=== PATIENT | male | born 1960 | race American Indian/Alaskan Native ===

== ENCOUNTER 2017-06-17 11:10 | Emergency (ER) | payer MEDICAID ==
--- NOTE | 2017-06-17 12:53 | XRay Report ---
LEFT HAND, 3 views: History: Pain The bony architecture is intact. Bony alignment is normal. No soft tissue abnormalities are seen. The joint spaces appear preserved. IMPRESSION: Normal left hand.
--- NOTE | 2017-06-17 12:53 | XRay Report ---
LEFT WRIST, 4 views: HISTORY: Pain. Routine views demonstrate the carpal bones to be well mineralized with well preserved bony mineralization and interosseous joint spaces. The carpal and adjacent articular bones have normal contours. The surrounding soft tissues are unremarkable. IMPRESSION: Normal study.
[2017-06-17] MEDS ORDERED: MOTRIN PO ONE (14:49)
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
[2017-06-17 15:17] VITALS: BP 126/92
== END 2017-06-17 15:19 | disposition home or self-care (01) ==
LOC: ED 11:10
DX: S66.912A Strain of unspecified muscle, fascia and tendon at wrist and hand level, left hand, initial encounter (principal); I10 Essential (primary) hypertension; J45.909 Unspecified asthma, uncomplicated; W18.30XA Fall on same level, unspecified, initial encounter; Y93.9 Activity, unspecified; Y92.9 Unspecified place or not applicable; Y99.9 Unspecified external cause status

== ENCOUNTER 2019-07-05 19:49 | Emergency (ER) | payer MEDICAID ==
[2019-07-06] MEDS ORDERED: ZIPRASIDONE MESYLATE 20 MG VIAL IM ONE ×2 (00:01→03:08)
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
--- NOTE | 2019-07-06 01:43 | Cat Scan Report ---
CT head/brain wo con INDICATION: ams. TECHNIQUE: Routine CT head without contrast. All CT scans at this location are performed using CT dos e reduction for ALARA by means of automated exposure control. COMPARISON: None. FINDINGS: BRAIN / INTRACRANIAL CONTENTS: Prior bifrontal craniotomy. No acute hemorrhage, mass effect, midline shift, or hydrocephalus. No appreciable acute large territorial or lacunar infarct. No chronic infar ct or focal atrophy. Normal brain volume and ventricular/sulcal size for age. ORBITS: No significant abnormality of visualized orbits. SINUSES / MASTOIDS: Mucous retention cyst in the right maxillary sinus. ADDITIONAL FINDINGS: None. IMPRESSION: 1. No acute intracranial abnormality identified on noncontrast CT of the brain. Signer Name: Janis Serna MD Signed: 07/06/2019 1:39 AM Workstation Name: [id number]
[2019-07-06 05:02] VITALS: BP 101/83
== END 2019-07-06 05:15 | disposition home or self-care (01) ==
LOC: ED 19:49
DX: F10.129 Alcohol abuse with intoxication, unspecified (principal); M19.90 Unspecified osteoarthritis, unspecified site; J45.909 Unspecified asthma, uncomplicated; G89.29 Other chronic pain; M54.9 Dorsalgia, unspecified
CPT/HCPCS: 36415; 70450; 96372; 99284; J3486; 80320; G0480

== ENCOUNTER 2019-07-28 17:51 | Emergency (ER) | payer MEDICAID ==
[2019-07-28 18:49] VITALS: BP 136/89
--- NOTE | 2019-07-28 18:53 | Emergency Department Report ---
Chief Complaint: Extremity Problem,Nontraumatic Stated Complaint: LT HAND PAIN - HPI History of Present Illness: 58yo BM states that he has L hand swelling and pain. He states that he recently had the same problem and his diagnosis was gout and arthritis. He states that he recent ran out of medication for gout. MSE screening note: Focused history and physical exam performed. Due to findings the following was ordered: ED Disposition for MSE Condition: Stable
--- NOTE | 2019-07-28 19:25 | XRay Report ---
EXAMINATION: Left hand, 07/28/2019 CLINICAL INFORMATION: Left hand pain and swelling. No history of trauma. COMPARISON: Left hand radiograph, 06/17/2017 FINDINGS: There is no evidence of acute bony fracture or significant soft tissue swelling of the left hand. No significant bony degenerative changes are visualized. Signer Name: Chelo Shrestha MD Signed: 07/28/2019 7:21 PM Workstation Name: [id number]
--- NOTE | 2019-07-28 20:55 | Emergency Department Report ---
Upper Extremity - HPI Chief Complaint: Extremity Problem,Nontraumatic Stated Complaint: LT HAND PAIN Time Seen by Provider: 07/28/19 20:36 Upper Extremity: Left Hand (pain and swelling to left hand and fingers), Left Thumb, Left Index Finger, Left Middle Finger, Left Ring Finger, Left Little Finger Occurred When: 3 Days Mechanism: Other (13 has a history of gout and had this in the past.) Severity: severe (10/10) Symptoms: Yes Pain with Movement (left hand and fingers to left hand), Yes Weakness (hand, left), Yes Swelling (left hand and fingers), No Limited Range of Movement (patient in moving fingers to left hand reporting pain), No Numbness, No Bruising/Ecchymosis, No Laceration or Abrasion Other History: Patient here reports left hand swelling and pain that been going on for a few days. He said he has had similar incident and had gone to [place] where they gave him some pills. He said he has a history of gout and has not been eating red meat. Denies any history of report for previous fracture to left hand. Denies any fever or chills. No medication taken prior to coming to the emergency room. ED Review of Systems ROS: Stated complaint: LT HAND PAIN Other details as noted in HPI Constitutional: denies: chills, fever Respiratory: denies: cough, shortness of breath, wheezing Cardiovascular: denies: chest pain, palpitations, edema, syncope Gastrointestinal: denies: abdominal pain, nausea, vomiting Musculoskeletal: joint swelling, arthralgia. denies: back pain, myalgia Skin: denies: rash Neurological: denies: headache, numbness, paresthesias ED Past Medical Hx - Past Medical History Previous Medical History?: Yes Hx Hypertension: Yes Hx Arthritis: Yes Hx Asthma: Yes Additional medical history: chronic back pain - Surgical History Past Surgical History?: Yes Additional Surgical History: hernia, subdural hematoma - Family History Family history: hypertension - Social History Smoking Status: Never Smoker Substance Use Type: None - Medications Home Medications: Home Medications Medication Instructions Recorded Confirmed Last Taken Type Ibuprofen [Motrin 600 MG tab] 600 mg PO Q8H PRN #30 tablet 06/17/17 Unknown Rx Clindamycin [Clindamycin CAP] 300 mg PO Q8H 10 Days #30 cap 07/28/19 Unknown Rx HYDROcodone/APAP 7.5-325 [Bode 1 each PO Q6HR PRN #12 tablet 07/28/19 Unknown Rx 7.5/325] Ibuprofen [Motrin] 800 mg PO Q8HR PRN #15 tablet 07/28/19 Unknown Rx Upper Extremity Exam - Exam General: Vital signs noted. No distress. Alert and acting appropriately. This is a 58-year-old male well-nourished well-developed in no acute distress. Head and Torso: No HEENT Abnormality, No Neck Tenderness, No Chest/Lungs Abnormality, No Abdominal Tenderness, No Back Tenderness Shoulder Exam: Yes Normal Range of Motion in Shoulder, No Shoulder Tenderness, N o Clavicle Tenderness, No Shoulder Deformity, No AC Joint Tenderness Arm Exam: No Arm/Humerus Tenderness, No Arm Deformity Elbow: Yes Normal Range of Motion in Elbow, No Elbow Tenderness, No Elbow Deformity Forearm: No Forearm Tenderness, No Forearm Deformity, No Pain with Pronation, No Pain with Supination Wrist: Yes Normal ROM in Wrist, No Wrist Tenderness, No Wrist Deformity, No Snuffbox Tenderness, No Pain with Axial Thumb Compression Hand: Yes Hand Tenderness (dorsal aspect and palmar aspect), Yes Digit Tenderness (all fingers of left hand), Yes Tendon Dysfunction (patient with difficulty in moving fingers.), No Hand Deformity, No Normal ROM in Digit(s) (limited range of motion to fingers of left hand), No Digit(s) Deformity CMS Exam: Yes Normal Distal Pulses (radial ulnar pulses are 2+), Yes Normal Capillary Refill (less than 2 seconds), Yes Normal Distal Sensation (normal sensation), No Broken Skin (no redness) ED Course Vital Signs 07/28/19 17:54 Temperature 98.4 F Pulse Rate 105 H Respiratory 16 Rate Blood Pressure 136/89 O2 Sat by Pulse 94 Oximetry Vital Signs 07/28/19 07/28/19 07/28/19 17:54 21:41 22:38 Temperature 98.4 F Pulse Rate 105 H Respiratory 16 16 16 Rate Blood Pressure 136/89 O2 Sat by Pulse 94 Oximetry Vital Signs 07/28/19 07/28/19 07/28/19 17:54 21:41 22:38 Temperature 98.4 F Pulse Rate 105 H Respiratory 16 16 16 Rate Blood Pressure 136/89 O2 Sat by Pulse 94 Oximetry 07/28/19 23:06 Temperature Pulse Rate 88 Respiratory Rate Blood Pressure O2 Sat by Pulse Oximetry - Reevaluation(s) Reevaluation #1: 07/28/19 21:58 Patient's CBC and CMP stable uric acid is normal. X-ray of left hand normal findings. Dr. Froylan Morgan who is the ER attending physician patient and suspect tendosynovitis and I spoke with Dr. Sy who is the orthopedic doctor and explained x-ray and lab work with him and he decided that patient does not sound like he has an infection since his white count is normal and he does not have a fever and that he can be sent home in a volar splint with sling to keep arm elevated and also anti-inflammatory. Patient had received morphine 4 mg IV and Zofran IV. He also received 1 L of normal saline. Dr. Sy was orthopedic do ctor once patient to be discharged home with splint and sling and to follow-up. Reevaluation #2: 07/28/19 23:04 Patient was given clindamycin 900 mg IV after consulting with Dr. Galeano he will and told him what this the orthopedic doctor said regarding splinting and sling and sent patient home on pain medicine and anti-inflammatory. Patient with tendinitis that is stable. Vital signs stable he is afebrile and pain is controlled. Splint checked and he has good color, movement temperature and sensation to fingers of left hand. Please see procedure note for details on splinting - Orthopedic Splinting/Casting Injury #1 Side: left Upper Extremity Injury Location: hand Upper Extremity Immobilizer: sling/shoulder immobilize, volar spint ED Medical Decision Making - Lab Data Result diagrams: 07/28/19 21:00 07/28/19 21:00 Lab Results 07/28/19 07/28/19 Range/Units 21:00 21:00 WBC 7.8 (4.5-11.0) K/mm3 RBC 3.81 (3.65-5.03) M/mm3 Hgb 11.9 (11.8-15.2) gm/dl Hct 34.8 L (35.5-45.6) % MCV 91 (84-94) fl MCH 31 (28-32) pg MCHC 34 (32-34) % RDW 13.3 (13.2-15.2) % Plt Count 293 (140-440) K/mm3 Lymph % (Auto) 16.5 (13.4-35.0) % Harding % (Auto) 7.0 (0.0-7.3) % Eos % (Auto) 1.3 (0.0-4.3) % Baso % (Auto) 1.4 (0.0-1.8) % Lymph # 1.2 (1.2-5.4) K/mm3 Harding # 0.5 (0.0-0.8) K/mm3 Eos # 0.1 (0.0-0.4) K/mm3 Baso # 0.1 (0.0-0.1) K/mm3 Seg Neutrophils % 73.8 H (40.0-70.0) % Seg Neutrophils # 5.4 (1.8-7.7) K/mm3 Sodium 136 L (137-145) mmol/L Potassium 3.8 (3.6-5.0) mmol/L Chloride 100.0 (98-107) mmol/L Carbon Dioxide 23 (22-30) mmol/L Anion Gap 17 mmol/L BUN 11 (9-20) mg/dL Creatinine 1.1 (0.8-1.5) mg/dL Estimated GFR > 60 ml/min BUN/Creatinine Ratio 10 % Glucose 94 (75-100) mg/dL Uric Acid 6.7 (3.5-7.6) mg/dL Calcium 9.3 (8.4-10.2) mg/dL Total Bilirubin 0.40 (0.1-1.2) mg/dL AST 20 (5-40) units/L ALT 18 (7-56) units/L Alkaline Phosphatase 89 (35-129) units/L Total Protein 7.8 (6.3-8.2) g/dL Albumin 4.0 (3.9-5) g/dL Albumin/Globulin Ratio 1.1 % - Radiology Data Radiology results: report reviewed X-ray of left hand showed no fracture or dislocation and no significant soft tissue swelling. This is dictated by radiologist and report reviewed by myself. Findings [facility] [address] [place] [address] XRay Report Signed Patient: NATALIIA VICK MR#: [id number] : 1960 Acct:[id number] Age/Sex: 58 / M ADM Date: 07/28/19 Loc: ED Attending Dr: Ordering Physician: TJ BANUELOS PA-C Date of Service: 07/28/19 Procedure(s): XR hand 3+V LT Accession Number(s): [id number] cc: TJ BANUELOS PA-C Fluoro Time In Minutes: EXAMINATION: Left hand, 07/28/2019 CLINICAL INFORMATION: Left hand pain and swelling. No history of trauma. COMPARISON: Left hand radiograph, 06/17/2017 FINDINGS: There is no evidence of acute bony fracture or significant soft tissue swelling of the left hand. No significant bony degenerative changes are visualized. Signer Name: Chelo Shrestha MD Signed: 07/28/2019 7:21 PM Workstation Name: [id number] Transcribed By: EB Dictated By: Chelo Shrestha MD Electronically Authenticated By: Chelo Shrestha MD Signed Date/Time: 07/28/191920 DD/ 19 TD/TT: - Medical Decision Making This is a 58-year-old male presented emergency room reporting left hand and finger pain with difficulty moving his left hand and finger due to pain. He is had this 2 times in the past and was treated at [facility] . Patient has no fever and his heart rate is normal. Blood pressure stable. Uric acid is normal and CBC and CMP stable. Dr. Froylan Morgan who is the ER attending physician saw patient and evaluated patient and I was told to call Dr. Sy was orthopedic doctor and after given him information on labs, x-ray and vital signs over the phone he decided that patient have tendinitis and should be placed in splint and sling and keep is left upper extremity elevated. Patient will medicated with pain medication in emergency room and his pain is 2 out of 10 at present. He was given 1 L of IV fluid. Vital signs are stable he is afebrile at present he said he is feeling a lot better. I discussed this decision of and also with Dr. Froylan Morgan and patient was treated with additional antibiotics IV and sent home on clindamycin, anti-inflammatory and Bode. I discussed with him that he needs to follow-up with his primary care and also orthopedic doctor and Wednesday and if his condition worsen to return to the emergency room [facility] and he agrees - Differential Diagnosis tendon abnormality, FX, contusion, Gout Critical care attestation.: If time is entered above; I have spent that time in minutes in the direct care of this critically ill patient, excluding procedure time. ED Disposition Clinical Impression: Tendinitis of left hand, Arthralgia of left hand Disposition: - TO HOME OR SELFCARE Is pt being admited?: No Does the pt Need Aspirin: No Condition: Stable Instructions: Tendinitis (ED), Arthralgia (ED), Splint Care (ED) Additional Instructions: return to the emergency room [facility] if you develop fever, redness and increased swelling to left hand and her fingers, difficulty in moving left hand or finger or pain radiating proximally to wrist and forearm. Follow-up with orthopedic doctor in 2 days which is 07/31/2019 for management of tendinitis and reevaluation. See discharge instruction on splint care, tendinitis. Do not drive or operate heavy machinery while taking Bode as this medication causes drowsiness Continue to wear sling and splint anterior seen by orthopedic doctor and keep left upper extremity which is your left hand and forearm elevated above shoulder level at all times. Prescriptions: Clindamycin [Clindamycin CAP] 300 mg PO Q8H 10 Days #30 cap Ibuprofen [Motrin] 800 mg PO Q8HR PRN #15 tablet PRN Reason: inflamation HYDROcodone/APAP 7.5-325 [Bode 7.5/325] 1 each PO Q6HR PRN #12 tablet PRN Reason: Pain Referrals: FLAKITA SY MD [Staff Physician] - 07/31/19 PRIMARY CAREMD [Primary Care Provider] - 07/31/19 [facility] [Outside] - 07/31/19 Forms: Work/School Release Form(ED), Accompanied Note
[2019-07-28] MEDS ORDERED: SODIUM CHLORIDE 0.9% 1000 ML 1,000 ML IV ONE (20:56)
[2019-07-28] MEDS ORDERED: KETOROLAC 60 MG/2 ML INJ IVP ONE (20:56)
[2019-07-28] MEDS ORDERED: ONDANSETRON 4 MG/2 ML INJ IV ONE (20:56)
[2019-07-28] MEDS ORDERED: dexAMETHasone 4 MG/ML VIAL IV STA (20:56)
[2019-07-28] MEDS ORDERED: MORPHINE 4 MG/1 ML INJ IV ONE (20:57)
[2019-07-28 21:17] LABS: Hematocrit 34.8 % (35.5-45.6); Hemoglobin 11.9 gm/dl (11.8-15.2); Mean Corpuscular HGB Conc 34 % (32-34); Mean Corpuscular Volume 91 fl (84-94); Platelet Count 293 K/mm3 (140-440); Red Blood Count 3.81 M/mm3 (3.65-5.03); Red Cell Distribution Width 13.3 % (13.2-15.2)
[2019-07-28 21:26] LABS: Basophils # (Auto) 0.1 K/mm3 (0.0-0.1); Basophils % (Auto) 1.4 % (0.0-1.8); Eosinophils # (Auto) 0.1 K/mm3 (0.0-0.4); Eosinophils % (Auto) 1.3 % (0.0-4.3); Lymphocytes # (Auto) 1.2 K/mm3 (1.2-5.4); Lymphocytes % (Auto) 16.5 % (13.4-35.0); Monocytes # (Auto) 0.5 K/mm3 (0.0-0.8)
[2019-07-28 21:42] LABS: Alanine Aminotransferase 18 units/L (7-56); BUN/Creatinine Ratio 10; Blood Urea Nitrogen 11 mg/dL (9-20); Calcium 9.3 mg/dL (8.4-10.2); Hemolysis Index 8; Uric Acid 6.7 mg/dL (3.5-7.6)
[2019-07-28] MEDS ORDERED: oxyCODONE /ACETAMINOPHEN 5-325MG TAB PO ONE (21:57)
--- NOTE | 2019-07-28 21:58 | Emergency Department Report ---
ED Lower Extremity HPI - General Chief Complaint: Extremity Problem,Nontraumatic Stated Complaint: LT HAND PAIN Time Seen by Provider: 07/28/19 20:36 Source: patient Mode of arrival: Ambulatory Limitations: No Limitations - Related Data Previous Rx's Medication Instructions Recorded Last Taken Type Ibuprofen [Motrin 600 MG tab] 600 mg PO Q8H PRN #30 tablet 06/17/17 Unknown Rx Allergies Allergy/AdvReac Type Severity Reaction Status Date / Time No Known Allergies Allergy Unverified 02/28/16 14:25 ED Review of Systems ROS: Stated complaint: LT HAND PAIN Other details as noted in HPI ED Past Medical Hx - Past Medical History Previous Medical History?: Yes Hx Hypertension: Yes Hx Arthritis: Yes Hx Asthma: Yes Additional medical history: chronic back pain - Surgical History Past Surgical History?: Yes Additional Surgical History: hernia, subdural hematoma - Social History Smoking Status: Never Smoker Substance Use Type: None - Medications Home Medications: Home Medications Medication Instructions Recorded Confirmed Last Taken Type Ibuprofen [Motrin 600 MG tab] 600 mg PO Q8H PRN #30 tablet 06/17/17 Unknown Rx ED Physical Exam - General Limitations: No Limitations ED Course Vital Signs 07/28/19 17:54 Temperature 98.4 F Pulse Rate 105 H Respiratory 16 Rate Blood Pressure 136/89 O2 Sat by Pulse 94 Oximetry ED Lower Extremity MDM - Lab Data Result diagrams: 07/28/19 21:00 07/28/19 21:00 Critical care attestation.: If time is entered above; I have spent that time in minutes in the direct care of this critically ill patient, excluding procedure time. ED Disposition Condition: Stable Referrals: PRIMARY CARE, [Primary Care Provider] - 3-5 Days
== END 2019-07-28 23:33 | disposition home or self-care (01) ==
LOC: ED 17:51
DX: M77.9 Enthesopathy, unspecified (principal); G89.29 Other chronic pain; I10 Essential (primary) hypertension; J45.909 Unspecified asthma, uncomplicated; Z98.890 Other specified postprocedural states; Z79.899 Other long term (current) drug therapy
CPT/HCPCS: 29125; 36415; 73130; 80053; 84550; 85025; 96361; 96365; 96375; 99285; J1100; J1885; J2270; J2405; J7030

== ENCOUNTER 2019-10-03 16:30 | Emergency (ER) | payer MEDICAID ==
[2019-10-03] MEDS ORDERED: predniSONE 20 MG TAB PO ONE (21:27)
[2019-10-03] MEDS ORDERED: IBUPROFEN 600 MG TAB PO ONE (21:27)
--- NOTE | 2019-10-03 22:40 | Emergency Department Report ---
ED Extremity Problem HPI - General Chief complaint: Extremity Injury, Upper Stated complaint: RT HAND SWELLING/PAIN Source: patient Mode of arrival: Ambulatory Limitations: No Limitations - History of Present Illness Initial comments: Patient is a 59-year-old -Filipino male with a history of hypertension and chronic osteoarthritis who presents to the ED with content of acute exacerbation of his chronic arthritis characterized by severe pain and swelling right hand for the last 1 week, worse in the last 2 days. Patient states that he was initially presented to the ED over 2 months ago and was diagnosed with osteoarthritis and given pain medications to take at home which she has been taking as needed since then biplane out of his medications a week ago. Patient denies fever, chills, nausea, vomiting, fall, traumatic injury, numbness and tingling or weakness of right hand, change in vision, dizziness, headache, chest pain or shortness of breath or neck pain. MD Complaint: extremity pain (right hand pain and swelling), extremity swelling (right hand swelling and pain), joint swelling (right hand swelling and pain), joint paint (right hand swelling and pain), other (chronic osteoarthritis) -: Sudden, week(s) (1) Location: right, upper extremity (right hand) History of Same: Yes (chronic osteoarthritis) -: Yes myalgia, Yes arthralgia, No fever, No associated dyspnea, No associated chest pain Severity scale (0 -10): 2 Quality: aching, sharp Consistency: constant Improves with: nothing Worsens with: weight bearing, exertion, palpation Associated Symptoms: denies other symptoms, arthralgias. denies: chest pain, shortness of breath, myalgias - Related Data Previous Rx's Medication Instructions Recorded Last Taken Type Clindamycin [Clindamycin CAP] 300 mg PO Q8H 10 Days #30 cap 07/28/19 Unknown Rx HYDROcodone/APAP 7.5-325 [[place] 1 each PO Q6HR PRN #12 tablet 07/28/19 Unknown Rx 7.5/325] Ibuprofen [Motrin] 800 mg PO Q8HR PRN #15 tablet 07/28/19 Unknown Rx Ibuprofen [Motrin 600 MG tab] 600 mg PO Q8H PRN #30 tablet 10/03/19 Unknown Rx predniSONE [Deltasone] 40 mg PO QDAY #12 tab 10/03/19 Unknown Rx tiZANidine [Zanaflex 4mg TAB] 4 mg PO Q8H PRN #21 tablet 10/03/19 Unknown Rx Allergies Allergy/AdvReac Type Severity Reaction Status Date / Time No Known Allergies Allergy Verified 10/03/19 17:23 ED Review of Systems ROS: Stated complaint: RT HAND SWELLING/PAIN Other details as noted in HPI Constitutional: denies: chills, fever Eyes: denies: eye pain, eye discharge, vision change ENT: denies: ear pain, throat pain Respiratory: denies: cough, shortness of breath, wheezing Cardiovascular: denies: chest pain, palpitations Endocrine: no symptoms reported Gastrointestinal: denies: abdominal pain, nausea, diarrhea Genitourinary: denies: urgency, dysuria Musculoskeletal: joint swelling (right hand pain and swelling), arthralgia (right hand pain). denies: back pain Skin: denies: rash, lesions Neurological: denies: headache, weakness, paresthesias Psychiatric: denies: anxiety, depression Hematological/Lymphatic: denies: easy bleeding, easy bruising ED Past Medical Hx - Past Medical History Previous Medical History?: Yes Hx Hypertension: Yes Hx CVA: No Hx Heart Attack/AMI: No Hx Congestive Heart Failure: No Hx Diabetes: No Hx Deep Vein Thrombosis: No Hx Pulmonary Embolism: No Hx GERD: No Hx Liver Disease: No Hx Renal Disease: No Hx of Cancer: No Hx Sickle Cell Disease: No Hx Arthritis: Yes Hx Headaches / Migraines: No Hx Seizures: No Hx Kidney Stones: No Hx Psychiatric Treatment: No Hx Asthma: Yes Hx COPD: No Hx Tuberculosis: No Hx Dementia: No Hx HIV: No Additional medical history: chronic back pain - Surgical History Past Surgical History?: Yes Hx Coronary Stent: No Hx Open Heart Surgery: No Hx Pacemaker: No Hx Internal Defibrillator: No Hx Cholecystectomy: No Hx Appendectomy: No Hx Breast Surgery: No Additional Surgical History: hernia, subdural hematoma - Social History Smoking Status: Never Smoker Substance Use Type: None - Medications Home Medications: Home Medications Medication Instructions Recorded Confirmed Last Taken Type Clindamycin [Clindamycin CAP] 300 mg PO Q8H 10 Days #30 cap 07/28/19 Unknown Rx HYDROcodone/APAP 7.5-325 [[place] 1 each PO Q6HR PRN #12 tablet 07/28/19 Unknown Rx 7.5/325] Ibuprofen [Motrin] 800 mg PO Q8HR PRN #15 tablet 07/28/19 Unknown Rx Ibuprofen [Motrin 600 MG tab] 600 mg PO Q8H PRN #30 tablet 10/03/19 Unknown Rx predniSONE [Deltasone] 40 mg PO QDAY #12 tab 10/03/19 Unknown Rx tiZANidine [Zanaflex 4mg TAB] 4 mg PO Q8H PRN #21 tablet 10/03/19 Unknown Rx ED Physical Exam - General Limitations: No Limitations General appearance: alert, in no apparent distress - Head Head exam: Present: atraumatic, normocephalic, normal inspection - Eye Eye exam: Present: normal appearance, PERRL, EOMI - ENT ENT exam: Present: normal exam, normal orophraynx, mucous membranes moist, TM's normal bilaterally, normal external ear exam - Neck Neck exam: Present: normal inspection, full ROM. Absent: tenderness, lymphadenopathy - Respiratory Respiratory exam: Present: normal lung sounds bilaterally. Absent: respiratory distress, wheezes, rales, rhonchi, chest wall tenderness, accessory muscle use - Cardiovascular Cardiovascular Exam: Present: regular rate, normal rhythm, normal heart sounds. Absent: systolic murmur, diastolic murmur, rubs, gallop - GI/Abdominal GI/Abdominal exam: Present: soft, normal bowel sounds. Absent: tenderness, guarding, hyperactive bowel sounds - Extremities Exam Extremities exam: Present: normal inspection, tenderness (probable severe right hand tenderness with swelling), normal capillary refill, joint swelling. Absent: pedal edema, calf tenderness (right hand swelling) - Back Exam Back exam: Present: normal inspection, full ROM. Absent: tenderness, muscle spasm, paraspinal tenderness - Neurological Exam Neurological exam: Present: alert, oriented X3, CN II-XII intact, normal gait, reflexes normal - Psychiatric Psychiatric exam: Present: normal affect, normal mood - Skin Skin exam: Present: warm, dry, intact, normal color. Absent: rash ED Course Vital Signs 10/03/19 10/03/19 17:22 21:55 Temperature 98.3 F Pulse Rate 91 H Respiratory 18 18 Rate Blood Pressure 139/90 O2 Sat by Pulse 99 Oximetry ED Medical Decision Making - Medical Decision Making This is a 59-year-old male with a history of chronic osteoarthritis who presented to the ED with worsening right hand pain and swelling for 1 week after hearing out of his posterior thoracic his medications. In the ED, patient is alert and oriented 3 and is not in distress with normal vital signs. Patient was treated for pain and discharged home on pain medications and advised to follow-up with his primary care physician in 5-7 days for reevaluation. Patient's symptoms are likely due to acute exacerbation of his chronic osteoarthritis. Patient eating pizza in the room and talking to other patients around while walking around the ED in no distress. - Differential Diagnosis chronic osteoarthritis; Chronic pain; Muscle strain; Tendonitis Critical care attestation.: If time is entered above; I have spent that time in minutes in the direct care of this critically ill patient, excluding procedure time. ED Disposition Clinical Impression: Chronic osteoarthritis, Tendinitis of right hand, Strain of muscle of right hand Disposition: DC-01 TO HOME OR SELFCARE Is pt being admited?: No Does the pt Need Aspirin: No Condition: Stable Instructions: Muscle Strain (ED), Tendinitis (ED), Osteoarthritis (ED) Additional Instructions: Your symptoms are due to chronic osteoarthritis exacerbation. Therefore take medication with food, drink plenty of fluids and follow-up with your primary care physician in 7-10 days for reevaluation. Return to the ED immediately if symptoms get worse. Prescriptions: predniSONE [Deltasone] 40 mg PO QDAY #12 tab Ibuprofen [Motrin 600 MG tab] 600 mg PO Q8H PRN #30 tablet PRN Reason: Pain tiZANidine [Zanaflex 4mg TAB] 4 mg PO Q8H PRN #21 tablet PRN Reason: Muscle Spasm Referrals: [facility] [Outside] - 7-10 days Time of Disposition: 22:46 Print Language: AUSTRIAN
[2019-10-03 23:10] VITALS: BP 152/90
== END 2019-10-03 23:10 | disposition home or self-care (01) ==
LOC: ED 16:30
DX: S66.911A Strain of unspecified muscle, fascia and tendon at wrist and hand level, right hand, initial encounter (principal); M77.9 Enthesopathy, unspecified; M19.90 Unspecified osteoarthritis, unspecified site; I10 Essential (primary) hypertension; Z79.899 Other long term (current) drug therapy; X58.XXXA Exposure to other specified factors, initial encounter; Y93.89 Activity, other specified; Y92.89 Other specified places as the place of occurrence of the external cause; Y99.8 Other external cause status
CPT/HCPCS: 99282; J7512

== ENCOUNTER 2019-10-30 22:51 | Emergency (ER) | payer MEDICAID ==
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
[2019-10-31 00:55] LABS: Basophils % (Auto) 0.6 % (0.0-1.8); Eosinophils % (Auto) 0.9 % (0.0-4.3); Hemoglobin 13.2 gm/dl (11.8-15.2); Lymphocytes # (Auto) 1.7 K/mm3 (1.2-5.4); Lymphocytes % (Auto) 33.9 % (13.4-35.0); Mean Corpuscular HGB Conc 34 % (32-34); Mean Corpuscular Volume 91 fl (84-94); Monocytes # (Auto) 0.1 K/mm3 (0.0-0.8); Monocytes % (Auto) 2.9 % (0.0-7.3); Platelet Count 233 K/mm3 (140-440)
[2019-10-31 01:15] LABS: BUN/Creatinine Ratio 14; Blood Urea Nitrogen 18 mg/dL (9-20); Calcium 9.4 mg/dL (8.4-10.2); Hemolysis Index 3
[2019-10-31] MEDS ORDERED: THIAMINE 100 MG, FOLIC ACID 1 MG, MULTIPLE VITAMIN INJ, ADULT 10 ML in SODIUM CHLORIDE ... IV ONE (02:14)
[2019-10-31] MEDS ORDERED: MAGNESIUM SULFATE 2 GM/50 ML BAG IV ONE (02:14)
[2019-10-31] MEDS ORDERED: IBUPROFEN 800 MG TAB PO ONE (16:00)
[2019-10-31] MEDS ORDERED: IBUPROFEN 800 MG TAB ONE (16:00)
[2019-10-31 20:30] VITALS: BP 171/80
== END 2019-10-31 20:30 | disposition home or self-care (01) ==
LOC: ED 22:51
DX: F10.129 Alcohol abuse with intoxication, unspecified (principal); M19.90 Unspecified osteoarthritis, unspecified site; J45.909 Unspecified asthma, uncomplicated; Z98.890 Other specified postprocedural states; Z79.1 Long term (current) use of non-steroidal anti-inflammatories (NSAID); Z79.899 Other long term (current) drug therapy
CPT/HCPCS: 36415; 80048; 80320; 85025; G0480; J3411; J7030

== ENCOUNTER 2022-04-20 22:15 | Emergency (ER) | payer MEDICAID ==
[2022-04-20 22:29] VITALS: BP 159/78
== END 2022-04-21 09:23 | disposition left against medical advice (07) ==
LOC: ED 22:15
DX: T22.00XA Burn of unspecified degree of shoulder and upper limb, except wrist and hand, unspecified site, initial encounter (principal); Z53.21 Procedure and treatment not carried out due to patient leaving prior to being seen by health care provider; X08.8XXA Exposure to other specified smoke, fire and flames, initial encounter; Y93.89 Activity, other specified; Y92.89 Other specified places as the place of occurrence of the external cause; Y99.8 Other external cause status